=== PATIENT | female | born 1990 | race Caucasian/White ===

== ENCOUNTER 2021-10-23 12:18 | Emergency (ER) | payer MEDICAID ==
[~2021-10-23] VITALS: Ht 160 cm; Wt 60.3 kg
--- NOTE | 2021-10-23 12:52 | NUR ---
PT SEEN AND EVALUATED BY DR ONTIVEROS.
[2021-10-23] MEDS ORDERED: IBUP-1955 PO (14:02)
--- NOTE | 2021-10-23 14:14 | NUR ---
Patient discharged to home in stable condition. Written and verbal after care instructions given. Patient verbalizes understanding of instructions. Stressed follow up or return to ER for worsening s/s.
[2021-10-23 14:15] VITALS: BP 101/60
== END 2021-10-23 14:16 | disposition home or self-care (01) ==
LOC: ER 12:25
DX: S93.601A Unspecified sprain of right foot, initial encounter (principal); W22.09XA Striking against other stationary object, initial encounter; Y92.018 Other place in single-family (private) house as the place of occurrence of the external cause
CPT/HCPCS: 73610; 73630; A4663